=== PATIENT | female | born 1955 | race Caucasian/White ===

== ENCOUNTER 2018-07-03 09:32 | Inpatient (IN) ==
[2018-07-03] MEDS ORDERED: MEROPENEM 1,000 MG in SODIUM CHLORIDE 0.9% 100 ML IV STA (10:18)
[2018-07-03] MEDS ORDERED: ONDANSETRON 4 MG/2 ML VIAL IV STA (10:18)
[2018-07-03] MEDS ORDERED: methylPREDNISolone SOD SUC 125 MG/2 ML VIAL IV STA (10:18)
[2018-07-03] MEDS ORDERED: ALBUTEROL/IPRATROPIUM 3 ML NEB RESP TX STA (10:18)
[2018-07-03] MEDS ORDERED: SODIUM CHLORIDE 0.9% 1,000 ML IV STA ×2 (10:18→11:38)
[2018-07-03 10:57] LABS: Basophils # 0.1 10*3/uL (0.0-0.2); Basophils % 0.4 % (0.0-0.8); Eosinophils # 0.2 10*3/uL (0.0-0.87); Eosinophils % 1.2 % (0.00-10.9); Hematocrit 33.5 VOL% (35.7-47.0); Hemoglobin 10.2 GM/DL (12.0-16.0); Immature Granulocytes % 2.7 %; Immature Granulocytes Absolute 0.38 #; Lymphocytes # 2.2 10*3/uL (1.4-4.0); Lymphocytes % 15.2 % (21.3-54.2); Mean Corpuscular HGB Conc 30.4 GM/DL (32-36); Mean Corpuscular Hemoglobin 28 PG (27-34); Mean Corpuscular Volume 91.3 FL (87-102); Mean Platelet Volume 9.6 FL (9.6-12.0); Monocytes # 1.6 10*3/uL (0.11-0.8); Monocytes % 11.4 % (1.7-12.7); Neutrophils # 9.9 10*3/uL (1.4-7.4); Neutrophils % 69.1 % (38.7-73.9); Platelet Count 274 T/CUMM (130-400); Red Blood Count 3.67 MC/CUMM (3.8-5.5); Red Cell Distribution Width 21.4 % (9.3-17.3); White Blood Count 14.3 T/CUMM (4-12)
[2018-07-03 11:31] LABS: Lactic Acid 1.5 MMOL/L (0.4-2.0)
[2018-07-03 11:34] LABS: Alanine Aminotransferase 20 U/L (13-56); Albumin 2.6 G/DL (3.4-5.0); Alkaline Phosphatase 57 U/L (45-117); Amylase 50 U/L (25-115); Apearance,Urine Slightly Hazy (Clear); Aspartate Amino Transferase 10 U/L (0-37); Bilirubin,Urine Negative (Negative); Blood Urea Nitrogen 31 MG/DL (7-18); Blood, Urine Negative (Negative); Calcium 8.4 MG/DL (8.5-10.1); Glucose 88 MG/DL (74-106); Glucose,Urine (UA) Negative (Negative); Hyaline Casts,Urine 4 /LPF (0-3); Ketones,Urine 5 mg/dL (Negative); Mucus,Urine Occasional /LPF (Occasional); Nitrite,Urine Negative (Negative); Osmolality,Calculated 269.5 MOS/KG (273-304); Protein,Urine 30 MG/DL; RBC,Urine <1 /HPF (0-4); Sodium 132 MMOL/L (136-145); Total Protein 6.6 G/DL (6.4-8.3); Troponin I < 0.015 NG/ML (0.00-0.045); Urine Color Yellow (Yellow); Urine Urobilinogen < 2.0 EU/DL (0.2-1.0); WBC,Urine 1 /HPF (0-6)
[2018-07-03] MEDS ORDERED: ACETAMINOPHEN 325 MG TABLET PO PRN (13:29)
[2018-07-03] MEDS ORDERED: guaiFENesin/DM ER 600-30 MG TABLET PO PRN (13:29)
[2018-07-03] MEDS ORDERED: ONDANSETRON 4 MG/2 ML VIAL IV PRN (13:29)
[2018-07-03 14:34] LABS: Barbiturates Screen,Urine Negative (Negative); Benzodiazepines Screen,Urine Negative (Negative); Cannabinoid Screen,Urine Negative (Negative); Opiate Screen,Urine Positive (Negative); Phencyclidine Screen,Urine Negative (Negative)
[2018-07-03] MEDS ORDERED: ALBUTEROL 2.5 MG/3 ML NEB RESP TX PRN (15:26)
[2018-07-03] MEDS ORDERED: methylPREDNISolone SOD SUC 40 MG/1 ML VIAL IV SCH (15:30)
[2018-07-03] MEDS ORDERED: cefTRIAXone 1,000 MG in SYRINGE 1 EACH IV SCH (16:00)
[2018-07-03] MEDS ORDERED: AZITHROMYCIN INJ 500 MG in SODIUM CHLORIDE 0.9% 250 ML IV SCH (16:00)
[2018-07-03] MEDS: SODIUM CHLORIDE 0.9% 1,000 ML IV SCH (16:19)
[2018-07-03] MEDS ORDERED: DIVALPROEX 500 MG TABLET PO SCH (21:00)
[2018-07-03] MEDS: guaiFENesin/DM ER 600-30 MG TABLET PO SCH (21:46)
[2018-07-03] MEDS: ALBUTEROL/IPRATROPIUM 3 ML NEB RESP TX SCH (21:50)
[2018-07-03] MEDS: methylPREDNISolone SOD SUC 40 MG/1 ML VIAL IV SCH (21:52)
[2018-07-04] MEDS: ALBUTEROL/IPRATROPIUM 3 ML NEB RESP TX SCH ×2 (01:41→07:17)
[2018-07-04 04:30] LABS: Basophils % 0.3 % (0.0-0.8); Hematocrit 30.3 VOL% (35.7-47.0); Hemoglobin 9.2 GM/DL (12.0-16.0); Immature Granulocytes % 2.6 %; Immature Granulocytes Absolute 0.29 #; Lymphocytes # 1.4 10*3/uL (1.4-4.0); Lymphocytes % 12.9 % (21.3-54.2); Mean Corpuscular HGB Conc 30.4 GM/DL (32-36); Mean Corpuscular Hemoglobin 28 PG (27-34); Monocytes # 0.2 10*3/uL (0.11-0.8); Monocytes % 1.8 % (1.7-12.7); Neutrophils % 82.4 % (38.7-73.9); Platelet Count 264 T/CUMM (130-400); Red Blood Count 3.33 MC/CUMM (3.8-5.5); Red Cell Distribution Width 21.3 % (9.3-17.3)
[2018-07-04 05:28] LABS: Calcium 8.3 MG/DL (8.5-10.1); Osmolality,Calculated 282.8 MOS/KG (273-304); Potassium 5.4 MMOL/L (3.5-5.1)
[2018-07-04] MEDS: SODIUM CHLORIDE 0.9% 1,000 ML IV SCH (06:25)
[2018-07-04] MEDS ORDERED: LEVOTHYROXINE 150 MCG TABLET PO SCH (06:30)
[2018-07-04] MEDS: guaiFENesin/DM ER 600-30 MG TABLET PO SCH (08:58)
[2018-07-04] MEDS: methylPREDNISolone SOD SUC 40 MG/1 ML VIAL IV SCH (08:59)
[2018-07-04] MEDS ORDERED: DIVALPROEX 500 MG TABLET PO SCH (09:00)
[2018-07-04 12:02] VITALS: BP 106/60
== END 2018-07-04 14:13 | disposition home or self-care (01) | DRG 203 ==
LOC: N.ED 09:32 → N.EDINP 13:29 → N.TELEN 14:18
PROVIDERS: ADMIT Internal Medicine Infectious Disease; ATTEND Internal Medicine Infectious Disease

== ENCOUNTER 2018-12-26 09:19 | Inpatient (IN) ==
[2018-12-26] MEDS ORDERED: SODIUM CHLORIDE 0.9% 500 ML IV STA (09:42)
[2018-12-26] MEDS ORDERED: VANCOMYCIN INJ 1,000 MG in SODIUM CHLORIDE 0.9% 250 ML IV STA (09:42)
[2018-12-26] MEDS ORDERED: SODIUM CHLORIDE 0.9% 1,000 ML IV STA (09:52)
[2018-12-26] MEDS ORDERED: MEROPENEM 1,000 MG in SODIUM CHLORIDE 0.9% 100 ML IV STA ×2 (10:13→10:26)
[2018-12-26 10:31] LABS: Basophils # 0.1 10*3/uL (0.0-0.2); Basophils % 0.3 % (0.0-0.8); Eosinophils # 0.2 10*3/uL (0.0-0.87); Eosinophils % 1.1 % (0.00-10.9); Hematocrit 33.3 VOL% (35.7-47.0); Hemoglobin 10.2 GM/DL (12.0-16.0); Immature Granulocytes % 0.4 %; Immature Granulocytes Absolute 0.07 #; Lymphocytes # 1.6 10*3/uL (1.4-4.0); Lymphocytes % 9.8 % (21.3-54.2); Mean Corpuscular HGB Conc 30.6 GM/DL (32-36); Mean Corpuscular Volume 88.1 FL (87-102); Monocytes % 7.7 % (1.7-12.7); Neutrophils % 80.7 % (38.7-73.9); Platelet Count 301 T/CUMM (130-400); Red Blood Count 3.78 MC/CUMM (3.8-5.5); Red Cell Distribution Width 16.8 % (9.3-17.3); White Blood Count 16.7 T/CUMM (4-12)
[2018-12-26 10:38] LABS: PT Patient Result 10.8 SECS
[2018-12-26 10:54] LABS: Amorphous Crystals,Urine Few /HPF (Few); Apearance,Urine Slightly Hazy (Clear); Bilirubin,Urine Negative (Negative); Blood, Urine Negative (Negative); Glucose,Urine (UA) Negative (Negative); Ketones,Urine 20 mg/dL (Negative); Mucus,Urine Occasional /LPF (Occasional); Nitrite,Urine Negative (Negative); Protein,Urine 30 MG/DL; RBC,Urine <1 /HPF (0-4); Urine Color Amber (Yellow); Urine Urobilinogen < 2.0 EU/DL (0.2-1.0); WBC,Urine 1 /HPF (0-6)
[2018-12-26 11:34] LABS: Sedimentation Rate-Westergren 85 MM/HR (0-30)
[2018-12-26 11:43] LABS: Alanine Aminotransferase 22 U/L (13-56); Alkaline Phosphatase 130 U/L (45-117); Aspartate Amino Transferase 55 U/L (0-37); Blood Urea Nitrogen 21 MG/DL (7-18); Calcium 9.3 MG/DL (8.5-10.1); Glucose 126 MG/DL (74-106); Osmolality,Calculated 272.2 MOS/KG (273-304); Total Protein 7.1 G/DL (6.4-8.3); Troponin I < 0.015 NG/ML (0.00-0.045)
[2018-12-26] MEDS ORDERED: PROMETHAZINE 25 MG/1 ML VIAL IM PRN (13:59)
[2018-12-26] MEDS: SODIUM CHLORIDE 0.9% 1,000 ML IV SCH ×2 (14:00→21:25)
[2018-12-26] MEDS: ONDANSETRON 4 MG/2 ML VIAL IV PRN (21:26)
[2018-12-26] MEDS: MEROPENEM 1,000 MG in SODIUM CHLORIDE 0.9% 100 ML IV SCH (21:27)
[2018-12-26] MEDS: MORPHINE 4 MG/1 ML VIAL IV PRN (21:28)
[2018-12-27] MEDS: MORPHINE 4 MG/1 ML VIAL IV PRN ×3 (01:26→15:21)
[2018-12-27] MEDS: ONDANSETRON 4 MG/2 ML VIAL IV PRN ×2 (01:26→06:01)
[2018-12-27 06:02] LABS: Basophils % 0.2 % (0.0-0.8); Eosinophils # 0.6 10*3/uL (0.0-0.87); Eosinophils % 6.1 % (0.00-10.9); Hematocrit 26.2 VOL% (35.7-47.0); Hemoglobin 8.1 GM/DL (12.0-16.0); Immature Granulocytes % 0.3 %; Immature Granulocytes Absolute 0.03 #; Lymphocytes # 2.1 10*3/uL (1.4-4.0); Lymphocytes % 20.2 % (21.3-54.2); Mean Corpuscular HGB Conc 30.9 GM/DL (32-36); Mean Corpuscular Volume 87.9 FL (87-102); Mean Platelet Volume 10.1 FL (9.6-12.0); Monocytes % 8.8 % (1.7-12.7); Neutrophils % 64.4 % (38.7-73.9); Platelet Count 252 T/CUMM (130-400); Red Blood Count 2.98 MC/CUMM (3.8-5.5); Red Cell Distribution Width 16.6 % (9.3-17.3); White Blood Count 10.3 T/CUMM (4-12)
[2018-12-27] MEDS: SODIUM CHLORIDE 0.9% 1,000 ML IV SCH ×3 (06:03→22:35)
[2018-12-27 06:32] LABS: Albumin 2.3 G/DL (3.4-5.0); Bilirubin,Total 1.2 MG/DL (0.2-1.0); Osmolality,Calculated 275.5 MOS/KG (273-304); Thyroid Stimulating Hormone 0.708 uIU/ml (0.358-3.74); Total Protein 5.6 G/DL (6.4-8.3)
[2018-12-27] MEDS: LEVOTHYROXINE 150 MCG TABLET PO SCH (08:39)
[2018-12-27] MEDS: PANTOPRAZOLE 40 MG TABLET PO SCH (08:40)
[2018-12-27] MEDS: VANCOMYCIN INJ 1,250 MG in SODIUM CHLORIDE 0.9% 250 ML IV SCH (08:42)
[2018-12-27] MEDS ORDERED: MAGNESIUM SULF RIDER 4 GM in PREMIX 1 EACH IV ONE (09:00)
[2018-12-27] MEDS ORDERED: SODIUM CHLORIDE 0.9% 1,000 ML IV PRN (10:29)
[2018-12-27] MEDS ORDERED: DEXAMETHASONE 10 MG/1 ML VIAL IV ONE (10:30)
[2018-12-27] MEDS: MEROPENEM 1,000 MG in SODIUM CHLORIDE 0.9% 100 ML IV SCH ×2 (13:42→21:04)
[2018-12-28 05:42] LABS: Basophils % 0.2 % (0.0-0.8); Hematocrit 37.4 VOL% (35.7-47.0); Hemoglobin 11.8 GM/DL (12.0-16.0); Immature Granulocytes % 0.5 %; Immature Granulocytes Absolute 0.03 #; Lymphocytes # 1.2 10*3/uL (1.4-4.0); Lymphocytes % 21.7 % (21.3-54.2); Mean Corpuscular HGB Conc 31.6 GM/DL (32-36); Mean Corpuscular Volume 86.4 FL (87-102); Mean Platelet Volume 10.3 FL (9.6-12.0); Monocytes % 1.6 % (1.7-12.7); Platelet Count 257 T/CUMM (130-400); Red Blood Count 4.33 MC/CUMM (3.8-5.5); Red Cell Distribution Width 16.2 % (9.3-17.3); White Blood Count 5.5 T/CUMM (4-12)
[2018-12-28 06:18] LABS: Albumin 2.4 G/DL (3.4-5.0); Bilirubin,Total 0.7 MG/DL (0.2-1.0); Osmolality,Calculated 278.7 MOS/KG (273-304); Total Protein 6.5 G/DL (6.4-8.3)
[2018-12-28] MEDS: LEVOTHYROXINE 150 MCG TABLET PO SCH (06:45)
[2018-12-28] MEDS: PANTOPRAZOLE 40 MG TABLET PO SCH (09:33)
[2018-12-28] MEDS: HYDROCORTISONE 10 MG TABLET PO SCH (09:33)
[2018-12-28] MEDS: SODIUM CHLORIDE 0.9% 1,000 ML IV SCH ×2 (09:35→15:36)
[2018-12-28] MEDS: MEROPENEM 1,000 MG in SODIUM CHLORIDE 0.9% 100 ML IV SCH (09:36)
[2018-12-28] MEDS: MORPHINE 4 MG/1 ML VIAL IV PRN ×2 (09:36→17:37)
[2018-12-28] MEDS: VANCOMYCIN INJ 1,250 MG in SODIUM CHLORIDE 0.9% 250 ML IV SCH (10:30)
[2018-12-28] MEDS: ACETAMINOPHEN 325 MG TABLET PO PRN (15:34)
[2018-12-28] MEDS: CIPROFLOXACIN 500 MG TABLET PO SCH (21:45)
[2018-12-29] MEDS: SODIUM CHLORIDE 0.9% 1,000 ML IV SCH ×2 (02:18→09:03)
[2018-12-29 05:35] LABS: Basophils % 0.1 % (0.0-0.8); Hematocrit 32.7 VOL% (35.7-47.0); Hemoglobin 10.5 GM/DL (12.0-16.0); Immature Granulocytes % 0.5 %; Immature Granulocytes Absolute 0.04 #; Lymphocytes # 1.3 10*3/uL (1.4-4.0); Mean Corpuscular HGB Conc 32.1 GM/DL (32-36); Mean Corpuscular Volume 85.4 FL (87-102); Mean Platelet Volume 10.2 FL (9.6-12.0); Neutrophils % 77.4 % (38.7-73.9); Platelet Count 263 T/CUMM (130-400); Red Blood Count 3.83 MC/CUMM (3.8-5.5); Red Cell Distribution Width 16.2 % (9.3-17.3); White Blood Count 7.9 T/CUMM (4-12)
[2018-12-29 05:59] LABS: Albumin 2.6 G/DL (3.4-5.0); Bilirubin,Total 1.5 MG/DL (0.2-1.0); Calcium 8.9 MG/DL (8.5-10.1); Osmolality,Calculated 287.1 MOS/KG (273-304)
[2018-12-29] MEDS: LEVOTHYROXINE 150 MCG TABLET PO SCH (06:04)
[2018-12-29] MEDS: ACETAMINOPHEN 325 MG TABLET PO PRN ×2 (06:09→12:10)
[2018-12-29] MEDS ORDERED: TOPIRAMATE 25 MG TABLET PO ONE (08:02)
[2018-12-29] MEDS: HYDROCORTISONE 10 MG TABLET PO SCH (09:02)
[2018-12-29] MEDS: CIPROFLOXACIN 500 MG TABLET PO SCH (09:02)
[2018-12-29] MEDS: PANTOPRAZOLE 40 MG TABLET PO SCH (09:02)
[2018-12-29] MEDS ORDERED: HYDROCORTISONE 10 MG TABLET PO SCH (14:00)
[2018-12-29 16:27] VITALS: BP 136/78
== END 2018-12-29 18:01 | disposition home or self-care (01) | DRG 596 ==
LOC: N.ED 09:19 → N.EDINP 14:00 → N.5E 15:38
PROVIDERS: ADMIT Internal Medicine; ATTEND Internal Medicine

== ENCOUNTER 2019-04-16 10:44 | Inpatient (IN) ==
[2019-04-16] MEDS ORDERED: METOCLOPRAMIDE 10 MG/2 ML VIAL IV STA (11:09)
[2019-04-16] MEDS ORDERED: ONDANSETRON 4 MG/2 ML VIAL IV STA (11:09)
[2019-04-16] MEDS ORDERED: SODIUM CHLORIDE 0.9% 2,000 ML IV STA (11:09)
[2019-04-16] MEDS ORDERED: PANTOPRAZOLE 40 MG VIAL IV STA (11:09)
[2019-04-16 11:47] LABS: Basophils % 0.3 % (0.0-0.8); Eosinophils # 0.3 10*3/uL (0.0-0.87); Eosinophils % 2.4 % (0.00-10.9); Hematocrit 28.6 VOL% (35.7-47.0); Hemoglobin 9.3 GM/DL (12.0-16.0); Immature Granulocytes % 0.6 %; Immature Granulocytes Absolute 0.08 #; Lymphocytes % 16.3 % (21.3-54.2); Mean Corpuscular HGB Conc 32.5 GM/DL (32-36); Mean Corpuscular Volume 91.7 FL (87-102); Mean Platelet Volume 9.3 FL (9.6-12.0); Monocytes % 8.3 % (1.7-12.7); Neutrophils % 72.1 % (38.7-73.9); Platelet Count 337 T/CUMM (130-400); Red Blood Count 3.12 MC/CUMM (3.8-5.5); Red Cell Distribution Width 13.6 % (9.3-17.3); White Blood Count 12.5 T/CUMM (4-12)
[2019-04-16] MEDS ORDERED: VANCOMYCIN INJ 1,000 MG in SODIUM CHLORIDE 0.9% 250 ML IV STA (11:50)
[2019-04-16 12:11] LABS: Alanine Aminotransferase 10 U/L (13-56); Albumin 2.5 G/DL (3.4-5.0); Alkaline Phosphatase 66 U/L (45-117); Amylase 26 U/L (25-115); Aspartate Amino Transferase 20 U/L (0-37); Blood Urea Nitrogen 13 MG/DL (7-18); Calcium 8.6 MG/DL (8.5-10.1); Estimated Glom Filtration Rate 28 ML/MIN; Glucose 84 MG/DL (74-106); Osmolality,Calculated 268.1 MOS/KG (273-304); Total Protein 5.7 G/DL (6.4-8.3); Troponin I < 0.015 NG/ML (0.00-0.045)
[2019-04-16 12:27] LABS: Apearance,Urine CLEAR (Clear); Bilirubin,Urine Negative (Negative); Blood, Urine Negative (Negative); Glucose,Urine (UA) Negative (Negative); Ketones,Urine Negative (Negative); Nitrite,Urine Negative (Negative); Protein,Urine Negative; RBC,Urine 1 /HPF (0-4); Urine Color Yellow (Yellow); Urine Specific Gravity 1.012 (1.001-1.035); Urine Urobilinogen < 2.0 EU/DL (0.2-1.0); WBC,Urine <1 /HPF (0-6)
[2019-04-16 12:49] LABS: Barbiturates Screen,Urine Negative (Negative); Benzodiazepines Screen,Urine Negative (Negative); Cannabinoid Screen,Urine Negative (Negative); Opiate Screen,Urine Positive (Negative); Phencyclidine Screen,Urine Negative (Negative)
[2019-04-16] MEDS ORDERED: SODIUM CHLORIDE 0.9% 1,000 ML IV STA (13:57)
[2019-04-16] MEDS ORDERED: PROMETHAZINE 25 MG/1 ML VIAL IM PRN (14:34)
[2019-04-16] MEDS ORDERED: ONDANSETRON 4 MG/2 ML VIAL IV PRN (14:34)
[2019-04-16] MEDS ORDERED: MORPHINE 4 MG/1 ML VIAL IV PRN (14:34)
[2019-04-16] MEDS ORDERED: ACETAMINOPHEN 325 MG TABLET PO PRN (14:34)
[2019-04-16 15:26] LABS: Free T4 (Free Thyroxine) 1.59 NG/DL (0.76-1.46); Thyroid Stimulating Hormone 1.8 uIU/ml (0.358-3.74)
[2019-04-16] MEDS: HYDROCORTISONE 100 MG VIAL IV SCH ×2 (17:38→22:51)
[2019-04-16] MEDS: SODIUM CHLORIDE 0.9% 1,000 ML IV SCH ×2 (17:38→23:00)
[2019-04-16] MEDS: PANTOPRAZOLE 40 MG VIAL IV SCH ×3 (17:40→21:16)
[2019-04-16] MEDS: ENOXAPARIN 30 MG/0.3 ML SYRINGE SUBCUT SCH (17:41)
[2019-04-16] MEDS: PIPERACILLIN/TAZOBACTAM 3,375 MG in SODIUM CHLORIDE 0.9% 100 ML IV SCH (17:43)
[2019-04-16] MEDS: fentaNYL 100 MCG/HR PATCH TRANSDERM SCH (20:10)
[2019-04-17 03:00] LABS: Basophils % 0.3 % (0.0-0.8); Hematocrit 28.7 VOL% (35.7-47.0); Hemoglobin 8.6 GM/DL (12.0-16.0); Immature Granulocytes % 0.3 %; Immature Granulocytes Absolute 0.02 #; Lymphocytes # 1.2 10*3/uL (1.4-4.0); Lymphocytes % 15.1 % (21.3-54.2); Mean Platelet Volume 9.5 FL (9.6-12.0); Monocytes % 1.7 % (1.7-12.7); Neutrophils % 82.6 % (38.7-73.9); Platelet Count 299 T/CUMM (130-400); Red Blood Count 3.02 MC/CUMM (3.8-5.5); Red Cell Distribution Width 13.8 % (9.3-17.3); White Blood Count 7.6 T/CUMM (4-12)
[2019-04-17] MEDS: PIPERACILLIN/TAZOBACTAM 3,375 MG in SODIUM CHLORIDE 0.9% 100 ML IV SCH ×2 (03:32→17:39)
[2019-04-17 03:34] LABS: Albumin 2.2 G/DL (3.4-5.0); Bilirubin,Total 0.7 MG/DL (0.2-1.0); Osmolality,Calculated 278.4 MOS/KG (273-304)
[2019-04-17] MEDS: HYDROCORTISONE 100 MG VIAL IV SCH (06:21)
[2019-04-17] MEDS: LEVOTHYROXINE 150 MCG TABLET PO SCH (06:22)
[2019-04-17] MEDS ORDERED: HYDROCORTISONE 100 MG VIAL IV SCH (08:00)
[2019-04-17] MEDS: PANTOPRAZOLE 40 MG VIAL IV SCH ×2 (08:05→21:43)
[2019-04-17] MEDS: SODIUM CHLORIDE 0.9% 1,000 ML IV SCH ×2 (08:07→17:04)
[2019-04-17] MEDS: HYDROCORTISONE 10 MG TABLET PO SCH ×2 (09:40→13:04)
[2019-04-17] MEDS: GABAPENTIN 600 MG TABLET PO SCH ×3 (09:40→21:43)
[2019-04-17] MEDS: POLYETHYLENE GLYCOL POWDER 17 GM PACK PO SCH (11:54)
[2019-04-17] MEDS: VANCOMYCIN INJ 1,250 MG in SODIUM CHLORIDE 0.9% 250 ML IV SCH (12:36)
[2019-04-17] MEDS ORDERED: fentaNYL 100 MCG/HR PATCH TRANSDERM SCH (16:45)
[2019-04-17] MEDS: ENOXAPARIN 30 MG/0.3 ML SYRINGE SUBCUT SCH (17:05)
[2019-04-17] MEDS: fentaNYL 100 MCG/HR PATCH TRANSDERM SCH (17:06)
[2019-04-17] MEDS: LUBIPROSTONE 24 MCG CAPSULE PO SCH (21:42)
[2019-04-17] MEDS: MORPHINE 4 MG/1 ML VIAL IV PRN (21:45)
[2019-04-18] MEDS: PIPERACILLIN/TAZOBACTAM 3,375 MG in SODIUM CHLORIDE 0.9% 100 ML IV SCH ×2 (04:39→16:49)
[2019-04-18 05:31] LABS: Basophils % 0.4 % (0.0-0.8); Eosinophils # 0.1 10*3/uL (0.0-0.87); Eosinophils % 0.8 % (0.00-10.9); Hematocrit 26.8 VOL% (35.7-47.0); Hemoglobin 8.3 GM/DL (12.0-16.0); Immature Granulocytes % 0.7 %; Immature Granulocytes Absolute 0.07 #; Lymphocytes # 1.9 10*3/uL (1.4-4.0); Mean Platelet Volume 9.3 FL (9.6-12.0); Monocytes % 8.5 % (1.7-12.7); Neutrophils % 70.6 % (38.7-73.9); Platelet Count 316 T/CUMM (130-400); Red Blood Count 2.85 MC/CUMM (3.8-5.5); Red Cell Distribution Width 13.7 % (9.3-17.3); White Blood Count 9.9 T/CUMM (4-12)
[2019-04-18 06:04] LABS: Calcium 8.1 MG/DL (8.5-10.1)
[2019-04-18] MEDS: SODIUM CHLORIDE 0.9% 1,000 ML IV SCH ×2 (06:19→15:14)
[2019-04-18] MEDS: LEVOTHYROXINE 150 MCG TABLET PO SCH (06:19)
[2019-04-18] MEDS: MORPHINE 4 MG/1 ML VIAL IV PRN ×2 (08:31→22:42)
[2019-04-18] MEDS: HYDROCORTISONE 10 MG TABLET PO SCH ×2 (08:33→15:13)
[2019-04-18] MEDS: LUBIPROSTONE 24 MCG CAPSULE PO SCH ×2 (08:33→20:25)
[2019-04-18] MEDS: PANTOPRAZOLE 40 MG VIAL IV SCH ×2 (08:33→20:26)
[2019-04-18] MEDS: POLYETHYLENE GLYCOL POWDER 17 GM PACK PO SCH (08:33)
[2019-04-18] MEDS: GABAPENTIN 600 MG TABLET PO SCH ×3 (08:34→20:24)
[2019-04-18] MEDS: SENNA 8.6 MG TABLET PO SCH (08:34)
[2019-04-18] MEDS ORDERED: MORPHINE 10 MG/1 ML VIAL IV PRN (11:09)
[2019-04-18] MEDS ORDERED: PROMETHAZINE INJ 25 MG in SODIUM CHLORIDE 0.9% 50 ML IV PRN (12:02)
[2019-04-18] MEDS: METRONIDAZOLE TOP SCH (15:12)
[2019-04-18] MEDS: VANCOMYCIN INJ 1,250 MG in SODIUM CHLORIDE 0.9% 250 ML IV SCH (15:12)
[2019-04-18] MEDS: ENOXAPARIN 30 MG/0.3 ML SYRINGE SUBCUT SCH (16:51)
[2019-04-19] MEDS: SODIUM CHLORIDE 0.9% 1,000 ML IV SCH ×2 (02:31→02:33)
[2019-04-19] MEDS: PIPERACILLIN/TAZOBACTAM 3,375 MG in SODIUM CHLORIDE 0.9% 100 ML IV SCH (05:10)
[2019-04-19] MEDS: LEVOTHYROXINE 150 MCG TABLET PO SCH (06:14)
[2019-04-19] MEDS: GABAPENTIN 600 MG TABLET PO SCH (08:26)
[2019-04-19] MEDS: PANTOPRAZOLE 40 MG VIAL IV SCH (08:26)
[2019-04-19] MEDS: LUBIPROSTONE 24 MCG CAPSULE PO SCH (08:27)
[2019-04-19] MEDS: HYDROCORTISONE 10 MG TABLET PO SCH (08:27)
[2019-04-19] MEDS: MORPHINE 4 MG/1 ML VIAL IV PRN (08:33)
[2019-04-19] MEDS ORDERED: CIPROFLOXACIN 500 MG TABLET PO SCH (09:00)
[2019-04-19] MEDS: METRONIDAZOLE TOP SCH (09:16)
[2019-04-19] MEDS: POLYETHYLENE GLYCOL POWDER 17 GM PACK PO SCH (09:16)
[2019-04-19] MEDS: SENNA 8.6 MG TABLET PO SCH (09:16)
[2019-04-19 11:35] VITALS: BP 135/77
== END 2019-04-19 15:35 | disposition home health service (06) | DRG 392 ==
LOC: N.ED 10:44 → N.EDINP 14:34 → N.TELEN 16:46 → N.4E 04-17 14:13
PROVIDERS: ADMIT Internal Medicine; ATTEND Internal Medicine

== ENCOUNTER 2019-09-11 19:22 | Inpatient (IN) ==
[2019-09-11] MEDS ORDERED: SODIUM CHLORIDE 0.9% 2,700 ML IV ONE (19:38)
[2019-09-11] MEDS ORDERED: CEFEPIME 2,000 MG in SODIUM CHLORIDE 0.9% 100 ML IV STA (19:40)
[2019-09-11] MEDS ORDERED: methylPREDNISolone SOD SUC 125 MG/2 ML VIAL IV STA (19:51)
[2019-09-11] MEDS ORDERED: LACTATED RINGERS IV ONE (20:00)
[2019-09-11 20:02] LABS: Basophils % 0.6 % (0.0-0.8); Eosinophils % 1.7 % (0.00-10.9); Hematocrit 21.5 VOL% (35.7-47.0); Hemoglobin 6.8 GM/DL (12.0-16.0); Immature Granulocytes % 1.7 %; Immature Granulocytes Absolute 0.03 #; Lymphocytes # 0.5 10*3/uL (1.4-4.0); Lymphocytes % 26.3 % (21.3-54.2); Mean Corpuscular HGB Conc 31.6 GM/DL (32-36); Mean Corpuscular Volume 98.2 FL (87-102); Mean Platelet Volume 11.4 FL (9.6-12.0); Monocytes % 26.8 % (1.7-12.7); Neutrophils % 42.9 % (38.7-73.9); Red Blood Count 2.19 MC/CUMM (3.8-5.5); Red Cell Distribution Width 15.3 % (9.3-17.3); White Blood Count 1.8 T/CUMM (4-12)
[2019-09-11 20:08] LABS: ABG Base Excess 3.4 MMOL/L (-2.5-2.5); ABG HCO3 27.5 MMOL/L (20-26); ABG Oxygen Saturation 99.3 % (95-100); ABG PCO2 42.6 MM HG (35-48); ABG PH 7.428 (7.35-7.45); ABG TCO2 25.9 MMOL/L (23-27); Allen Test Positive; Pt O2 Delivery Device Other
[2019-09-11 20:12] LABS: Platelet Count 9 T/CUMM (130-400)
[2019-09-11 20:17] LABS: Albumin 2.4 G/DL (3.4-5.0); Bilirubin,Total 0.7 MG/DL (0.2-1.0); Calcium 8.3 MG/DL (8.5-10.1); Osmolality,Calculated 263.8 MOS/KG (273-304); Total Protein 5.7 G/DL (6.4-8.3)
[2019-09-11 20:22] LABS: INR 1.1; PT Patient Result 11.4 SECS (9.6-12.2); Partial Thromboplastin Time 36.4 SECS (20.8-36.0)
[2019-09-11] MEDS ORDERED: VANCOMYCIN INJ 2,000 MG in SODIUM CHLORIDE 0.9% 500 ML IV ONE (20:30)
[2019-09-11] MEDS ORDERED: SODIUM CHLORIDE 0.9% 1,000 ML IV PRN (20:36)
[2019-09-11] MEDS ORDERED: IBUPROFEN 200 MG TABLET PO STA (20:41)
[2019-09-11] MEDS ORDERED: IBUPROFEN 600 MG TABLET ONE (20:43)
[2019-09-11 20:48] LABS: Anisocytosis 2+; Hypochromasia 2+; Lymphocytes 38 % (20-55); Microcytosis 2+; Platelet Estimate Decreased; Segmented Neutrophils 38 % (50-85); Total Cells Counted 100
[2019-09-11 20:56] LABS: Apearance,Urine Slightly Hazy (Clear); Bacteria,Urine Occasional /HPF (Few); Bilirubin,Urine Negative (Negative); Blood, Urine Negative (Negative); Glucose,Urine (UA) Negative (Negative); Ketones,Urine Negative (Negative); Mucus,Urine Occasional /LPF (Occasional); Nitrite,Urine Negative (Negative); Protein,Urine 30 MG/DL; Urine Color Amber (Yellow); Urine Specific Gravity 1.016 (1.001-1.035); WBC,Urine 17 /HPF (0-6)
[2019-09-11] MEDS ORDERED: hydrALAZINE 20 MG/1 ML VIAL IV PRN (21:29)
[2019-09-11] MEDS ORDERED: ACETAMINOPHEN 325 MG TABLET PO PRN (21:29)
[2019-09-11] MEDS ORDERED: ALBUTEROL 2.5 MG/3 ML NEB RESP TX PRN (21:29)
[2019-09-11] MEDS ORDERED: guaiFENesin/DM ER 600-30 MG TABLET PO PRN (21:29)
[2019-09-11] MEDS ORDERED: DOCUSATE SODIUM 100 MG CAPSULE PO PRN (21:29)
[2019-09-11] MEDS ORDERED: ZALEPLON 5 MG CAPSULE PO PRN (21:29)
[2019-09-11] MEDS ORDERED: ONDANSETRON 4 MG/2 ML VIAL IV PRN (21:29)
[2019-09-11] MEDS ORDERED: VANCOMYCIN INJ 1,000 MG in SODIUM CHLORIDE 0.9% 250 ML IV PRN (21:48)
[2019-09-11] MEDS: metroNIDAZOLE INJ 500 MG in PREMIX 1 EACH IV SCH (23:28)
[2019-09-11] MEDS ORDERED: SODIUM CHLORIDE 0.9% 1,000 ML IV SCH (23:30)
[2019-09-12] MEDS: SODIUM CHLORIDE 0.9% 1,000 ML IV SCH ×3 (00:20→23:18)
[2019-09-12] MEDS: metroNIDAZOLE INJ 500 MG in PREMIX 1 EACH IV SCH ×3 (06:30→21:57)
[2019-09-12 06:54] LABS: Basophils % 0.7 % (0.0-0.8); Hematocrit 26.6 VOL% (35.7-47.0); Immature Granulocytes % 1.4 %; Immature Granulocytes Absolute 0.02 #; Lymphocytes # 0.2 10*3/uL (1.4-4.0); Lymphocytes % 12.4 % (21.3-54.2); Mean Corpuscular Volume 93.7 FL (87-102); Monocytes % 19.3 % (1.7-12.7); Neutrophils % 66.2 % (38.7-73.9); Red Cell Distribution Width 15.7 % (9.3-17.3); White Blood Count 1.5 T/CUMM (4-12)
[2019-09-12 06:59] LABS: Platelet Count 6 T/CUMM (130-400); Red Blood Count 2.84 MC/CUMM (3.8-5.5)
[2019-09-12 07:00] LABS: Hemoglobin 8.5 GM/DL (12.0-16.0)
[2019-09-12 07:11] LABS: Albumin 2.5 G/DL (3.4-5.0); Bilirubin,Total 0.7 MG/DL (0.2-1.0); Calcium 8.5 MG/DL (8.5-10.1); Total Protein 5.7 G/DL (6.4-8.3)
[2019-09-12 08:44] LABS: Band Neutrophils 13 % (0-10); Eosinophils 1 % (0-10); Lymphocytes 15 % (20-55); Metamyelocytes 3 %; Segmented Neutrophils 52 % (50-85); Total Cells Counted 100
[2019-09-12 08:45] LABS: Anisocytosis Slight; Atypical Lymphocytes Few; Macrocytosis Slight; Platelet Estimate Decreased; Reactive Lymphocytes Few
[2019-09-12] MEDS: CEFEPIME 2,000 MG in SODIUM CHLORIDE 0.9% 100 ML IV SCH ×2 (09:31→22:48)
[2019-09-12] MEDS ORDERED: HYDROCORTISONE 100 MG VIAL IV ONE (11:02)
[2019-09-12] MEDS ORDERED: POLYETHYLENE GLYCOL POWDER 17 GM PACK PO PRN (11:02)
[2019-09-12] MEDS ORDERED: ONDANSETRON 4 MG TABLET PO PRN (11:02)
[2019-09-12] MEDS: CHOLECALCIFEROL 1,000 UNIT TABLET PO SCH (11:56)
[2019-09-12] MEDS: LEVOTHYROXINE 175 MCG TABLET PO SCH (11:56)
[2019-09-12] MEDS: HYDROCORTISONE 10 MG TABLET PO SCH ×2 (11:56→15:19)
[2019-09-12] MEDS: ACYCLOVIR 800 MG TABLET PO SCH ×2 (11:56→21:57)
[2019-09-12] MEDS: PANTOPRAZOLE 40 MG TABLET PO SCH (11:56)
[2019-09-12] MEDS: SENNA 8.6 MG TABLET PO SCH ×2 (11:56→21:57)
[2019-09-12] MEDS ORDERED: SODIUM CHLORIDE 0.9% 1,000 ML IV PRN ×2 (13:19→13:40)
[2019-09-12] MEDS ORDERED: OXYCODONE PO SCH ×2 (14:00→22:00)
[2019-09-12] MEDS: OXYCODONE 80 MG PO SCH ×2 (14:40→22:09)
[2019-09-12] MEDS: GABAPENTIN 300 MG CAPSULE PO SCH ×2 (15:19→21:56)
[2019-09-12] MEDS: FILGRASTIM-SNDZ 300 MCG/0.5 ML SYRINGE SUBCUT SCH (15:21)
[2019-09-12] MEDS: OXYCODONE PO SCH (22:10)
[2019-09-13] MEDS: GABAPENTIN 300 MG CAPSULE PO SCH ×3 (06:08→22:26)
[2019-09-13] MEDS: metroNIDAZOLE INJ 500 MG in PREMIX 1 EACH IV SCH (06:08)
[2019-09-13] MEDS: OXYCODONE 80 MG PO SCH ×3 (06:09→22:10)
[2019-09-13] MEDS: OXYCODONE PO SCH ×3 (06:11→22:11)
[2019-09-13 06:23] LABS: Hematocrit 27.5 VOL% (35.7-47.0); Hemoglobin 9.1 GM/DL (12.0-16.0); Immature Granulocytes % 5.8 %; Immature Granulocytes Absolute 0.51 #; Lymphocytes # 0.7 10*3/uL (1.4-4.0); Lymphocytes % 8.2 % (21.3-54.2); Mean Corpuscular HGB Conc 33.1 GM/DL (32-36); Mean Platelet Volume 10.9 FL (9.6-12.0); Monocytes % 11.6 % (1.7-12.7); Neutrophils % 74.4 % (38.7-73.9); Red Blood Count 2.99 MC/CUMM (3.8-5.5); Red Cell Distribution Width 15.9 % (9.3-17.3); White Blood Count 8.9 T/CUMM (4-12)
[2019-09-13 06:26] LABS: Platelet Count 26 T/CUMM (130-400)
[2019-09-13 06:43] LABS: Band Neutrophils 4 % (0-10); Hypochromasia 1+; Lymphocytes 6 % (20-55); Ovalocytes Slight; Platelet Estimate Decreased; Segmented Neutrophils 81 % (50-85); Total Cells Counted 100
[2019-09-13 06:51] LABS: Albumin 2.6 G/DL (3.4-5.0); Calcium 8.8 MG/DL (8.5-10.1); Osmolality,Calculated 273.1 MOS/KG (273-304); Total Protein 6.1 G/DL (6.4-8.3)
[2019-09-13] MEDS: HYDROCORTISONE 10 MG TABLET PO SCH ×2 (08:39→14:27)
[2019-09-13] MEDS: OXYCODONE 30 MG PO PRN ×3 (08:40→20:13)
[2019-09-13] MEDS: SODIUM CHLORIDE 0.9% 1,000 ML IV SCH ×2 (09:27→14:28)
[2019-09-13] MEDS: SENNA 8.6 MG TABLET PO SCH ×2 (09:32→20:12)
[2019-09-13] MEDS: PANTOPRAZOLE 40 MG TABLET PO SCH (09:32)
[2019-09-13] MEDS: ACYCLOVIR 800 MG TABLET PO SCH ×2 (09:32→20:12)
[2019-09-13] MEDS: LEVOTHYROXINE 175 MCG TABLET PO SCH (09:32)
[2019-09-13] MEDS: CHOLECALCIFEROL 1,000 UNIT TABLET PO SCH (09:32)
[2019-09-13] MEDS: CEFEPIME 2,000 MG in SODIUM CHLORIDE 0.9% 100 ML IV SCH ×2 (09:44→20:13)
[2019-09-13] MEDS: FILGRASTIM-SNDZ 300 MCG/0.5 ML SYRINGE SUBCUT SCH (09:45)
[2019-09-13] MEDS: VANCOMYCIN INJ 1,000 MG in SODIUM CHLORIDE 0.9% 250 ML IV SCH (10:25)
[2019-09-14] MEDS: SODIUM CHLORIDE 0.9% 1,000 ML IV SCH ×2 (00:10→10:29)
[2019-09-14 05:30] LABS: Basophils # 0.1 10*3/uL (0.0-0.2); Basophils % 0.6 % (0.0-0.8); Eosinophils % 0.3 % (0.00-10.9); Hemoglobin 8.3 GM/DL (12.0-16.0); Immature Granulocytes % 10.8 %; Immature Granulocytes Absolute 1.68 #; Lymphocytes # 1.2 10*3/uL (1.4-4.0); Lymphocytes % 7.9 % (21.3-54.2); Mean Corpuscular HGB Conc 31.9 GM/DL (32-36); Mean Corpuscular Volume 94.9 FL (87-102); Mean Platelet Volume 12.3 FL (9.6-12.0); Monocytes % 6.4 % (1.7-12.7); NRBC # 0.03 10*3/uL; Red Blood Count 2.74 MC/CUMM (3.8-5.5); Red Cell Distribution Width 16.1 % (9.3-17.3); White Blood Count 15.5 T/CUMM (4-12)
[2019-09-14 05:34] LABS: Platelet Count 18 T/CUMM (130-400)
[2019-09-14 06:03] LABS: Band Neutrophils 2 % (0-10); Hypochromasia 2+; Lymphocytes 9 % (20-55); Myelocytes 1 %; Nucleated Red Blood Cells 1 (0-5); Ovalocytes Slight; Platelet Estimate Decreased; Segmented Neutrophils 85 % (50-85); Total Cells Counted 100
[2019-09-14] MEDS: GABAPENTIN 300 MG CAPSULE PO SCH ×2 (06:06→14:43)
[2019-09-14] MEDS: LEVOTHYROXINE 175 MCG TABLET PO SCH (06:06)
[2019-09-14] MEDS: OXYCODONE PO SCH ×2 (06:09→14:43)
[2019-09-14] MEDS: OXYCODONE 80 MG PO SCH ×2 (06:19→14:43)
[2019-09-14] MEDS: OXYCODONE 30 MG PO PRN ×2 (06:23→10:35)
[2019-09-14 06:32] LABS: Albumin 2.2 G/DL (3.4-5.0); Bilirubin,Total 0.5 MG/DL (0.2-1.0); Calcium 8.3 MG/DL (8.5-10.1); Osmolality,Calculated 282.1 MOS/KG (273-304); Total Protein 5.2 G/DL (6.4-8.3)
[2019-09-14] MEDS ORDERED: MAGNESIUM SULF RIDER 4 GM in PREMIX 1 EACH IV PRN (07:05)
[2019-09-14] MEDS ORDERED: MAGNESIUM SULF RIDER 2 GM in PREMIX 1 EACH IV PRN (07:05)
[2019-09-14] MEDS ORDERED: SODIUM CHLORIDE 0.9% 1,000 ML IV PRN (08:12)
[2019-09-14] MEDS: HYDROCORTISONE 10 MG TABLET PO SCH ×2 (08:58→14:43)
[2019-09-14] MEDS: PANTOPRAZOLE 40 MG TABLET PO SCH (08:58)
[2019-09-14] MEDS: ACYCLOVIR 800 MG TABLET PO SCH (08:58)
[2019-09-14] MEDS: SENNA 8.6 MG TABLET PO SCH (08:58)
[2019-09-14] MEDS: FILGRASTIM-SNDZ 300 MCG/0.5 ML SYRINGE SUBCUT SCH (08:58)
[2019-09-14] MEDS: CHOLECALCIFEROL 1,000 UNIT TABLET PO SCH (08:58)
[2019-09-14] MEDS: CEFEPIME 2,000 MG in SODIUM CHLORIDE 0.9% 100 ML IV SCH (08:58)
[2019-09-14] MEDS: VANCOMYCIN INJ 1,000 MG in SODIUM CHLORIDE 0.9% 250 ML IV SCH (10:10)
[2019-09-14] MEDS: POTASSIUM CHLORIDE 20 MEQ TABLET PO PRN ×2 (10:29→12:02)
[2019-09-14] MEDS ORDERED: METHADONE 10 MG TABLET PO SCH (11:00)
[2019-09-14] MEDS ORDERED: HEPARIN LOCK FLUSH 500 UNIT/5 ML SYRINGE IV ONE (14:24)
[2019-09-14 14:39] VITALS: BP 109/54
== END 2019-09-14 15:03 | disposition home or self-care (01) | DRG 871 ==
LOC: EDUNIT# → EDBD → N.ED 19:22 → SUATTDRO 21:29 → N.EDINP 21:29 → N.CC 21:53 → N.4E 09-12 13:34
PROVIDERS: ADMIT Internal Medicine; ATTEND Internal Medicine

== ENCOUNTER 2020-01-23 09:25 | Inpatient (IN) ==
[2020-01-23] MEDS ORDERED: SODIUM CHLORIDE 0.9% 1,000 ML IV STA (09:52)
[2020-01-23] MEDS ORDERED: MORPHINE 4 MG/1 ML VIAL IV STA (09:53)
[2020-01-23] MEDS ORDERED: HYDROmorphone 2 MG/1 ML VIAL IV STA (10:16)
[2020-01-23] MEDS ORDERED: HYDROmorphone 2 MG/1 ML VIAL ONE (10:17)
[2020-01-23 10:32] LABS: Basophils % 0.4 % (0.0-0.8); Eosinophils # 0.2 10*3/uL (0.0-0.87); Immature Granulocytes % 0.4 %; Immature Granulocytes Absolute 0.03 #; Lymphocytes # 1.2 10*3/uL (1.4-4.0); Lymphocytes % 15.1 % (21.3-54.2); Mean Corpuscular HGB Conc 31.6 GM/DL (32-36); Mean Corpuscular Volume 103.3 FL (87-102); Mean Platelet Volume 9.3 FL (9.6-12.0); Monocytes % 10.4 % (1.7-12.7); Neutrophils % 70.7 % (38.7-73.9); Platelet Count 268 T/CUMM (130-400); Red Blood Count 1.84 MC/CUMM (3.8-5.5); Red Cell Distribution Width 19.6 % (9.3-17.3)
[2020-01-23 10:47] LABS: Apearance,Urine CLOUDY (Clear); Bilirubin,Urine Negative (Negative); Blood, Urine Moderate mg/dL (Negative); Glucose,Urine (UA) Negative (Negative); Ketones,Urine 5 mg/dL (Negative); Nitrite,Urine Negative (Negative); Protein,Urine 30 MG/DL; RBC,Urine 23551 /HPF (0-4); Urine Color Red (Yellow); Urine Specific Gravity 1.019 (1.001-1.035); Urine Urobilinogen < 2.0 EU/DL (0.2-1.0); WBC,Urine 788 /HPF (0-6)
[2020-01-23 10:51] LABS: Albumin 2.8 G/DL (3.4-5.0); Bilirubin,Total 0.4 MG/DL (0.2-1.0); Osmolality,Calculated 251.8 MOS/KG (273-304); Total Protein 5.6 G/DL (6.4-8.3)
[2020-01-23 10:54] LABS: Barbiturates Screen,Urine Negative (Negative); Benzodiazepines Screen,Urine Negative (Negative); Cannabinoid Screen,Urine Negative (Negative); Opiate Screen,Urine Positive (Negative); Phencyclidine Screen,Urine Negative (Negative)
[2020-01-23] MEDS ORDERED: cefTRIAXone 1,000 MG in SODIUM CHLORIDE 0.9% 100 ML IV STA (11:08)
[2020-01-23] MEDS ORDERED: GLUCAGON 1 MG VIAL IM PRN (12:30)
[2020-01-23] MEDS ORDERED: DOCUSATE SODIUM 100 MG CAPSULE PO PRN (12:30)
[2020-01-23] MEDS ORDERED: ONDANSETRON 4 MG/2 ML VIAL IV PRN (12:30)
[2020-01-23] MEDS ORDERED: ACETAMINOPHEN 325 MG TABLET PO PRN (12:30)
[2020-01-23] MEDS ORDERED: SODIUM CHLORIDE 0.9% 1,000 ML IV PRN (12:34)
[2020-01-23 13:02] LABS: Risk Ratio 4.6; Thyroid Stimulating Hormone 6.86 uIU/ml (0.358-3.74)
[2020-01-23] MEDS ORDERED: POLYETHYLENE GLYCOL POWDER 17 GM PACK PO PRN (13:20)
[2020-01-23] MEDS ORDERED: HYDROCORTISONE 10 MG TABLET PO SCH (14:00)
[2020-01-23] MEDS: MEROPENEM 500 MG in SODIUM CHLORIDE 0.9% 100 ML IV SCH (15:28)
[2020-01-23] MEDS: SODIUM CHLORIDE 0.9% 1,000 ML IV SCH (16:10)
[2020-01-23] MEDS: GABAPENTIN 300 MG CAPSULE PO SCH ×2 (16:10→21:04)
[2020-01-23] MEDS: NYSTATIN 500,000 UNIT/5 ML UDCUP SWISH/SWAL SCH ×2 (18:09→21:14)
[2020-01-23] MEDS: POLYETHYLENE GLYCOL POWDER 17 GM PACK PO SCH (21:00)
[2020-01-23] MEDS: ACYCLOVIR 800 MG TABLET PO SCH (21:08)
[2020-01-23] MEDS: SENNA 8.6 MG TABLET PO SCH (21:10)
[2020-01-23] MEDS: DOCUSATE/SENNA 50-8.6 MG TABLET PO SCH (21:10)
[2020-01-23] MEDS ORDERED: OXYCODONE 60 MG PO PRN (22:49)
[2020-01-24 00:17] LABS: Hematocrit 22.3 VOL% (35.7-47.0); Hemoglobin 7.1 GM/DL (12.0-16.0)
[2020-01-24] MEDS: SODIUM CHLORIDE 0.9% 1,000 ML IV SCH (00:30)
[2020-01-24] MEDS: DEXTROSE 50% 25 GM/50 ML VIAL IV PRN ×3 (00:36→11:25)
[2020-01-24] MEDS: GABAPENTIN 300 MG CAPSULE PO SCH (06:41)
[2020-01-24] MEDS: LEVOTHYROXINE 175 MCG TABLET PO SCH (06:42)
[2020-01-24 07:22] LABS: Basophils % 0.4 % (0.0-0.8); Eosinophils # 0.2 10*3/uL (0.0-0.87); Eosinophils % 2.9 % (0.00-10.9); Hematocrit 20.3 VOL% (35.7-47.0); Hemoglobin 6.6 GM/DL (12.0-16.0); Immature Granulocytes % 0.4 %; Immature Granulocytes Absolute 0.03 #; Mean Corpuscular HGB Conc 32.5 GM/DL (32-36); Mean Corpuscular Volume 96.7 FL (87-102); Mean Platelet Volume 8.9 FL (9.6-12.0); Monocytes % 12.2 % (1.7-12.7); Neutrophils % 71.1 % (38.7-73.9); Platelet Count 204 T/CUMM (130-400); Red Cell Distribution Width 23.9 % (9.3-17.3); White Blood Count 7.6 T/CUMM (4-12)
[2020-01-24 07:39] LABS: Hypochromasia 1+; Microcytosis 1+; Platelet Estimate Adequate
[2020-01-24 07:40] LABS: Albumin 2.4 G/DL (3.4-5.0); Bilirubin,Total 0.4 MG/DL (0.2-1.0); Calcium 7.6 MG/DL (8.5-10.1); Osmolality,Calculated 260.1 MOS/KG (273-304); Total Protein 4.9 G/DL (6.4-8.3)
[2020-01-24] MEDS ORDERED: HYDROCORTISONE 10 MG TABLET PO SCH (09:00)
[2020-01-24] MEDS ORDERED: CHOLECALCIFEROL 1,000 UNIT TABLET PO SCH (09:00)
[2020-01-24] MEDS: PANTOPRAZOLE 40 MG TABLET PO SCH (09:15)
[2020-01-24] MEDS: ACYCLOVIR 800 MG TABLET PO SCH (09:15)
[2020-01-24] MEDS: SENNA 8.6 MG TABLET PO SCH (09:15)
[2020-01-24] MEDS: POLYETHYLENE GLYCOL POWDER 17 GM PACK PO SCH (09:15)
[2020-01-24] MEDS: NYSTATIN 500,000 UNIT/5 ML UDCUP SWISH/SWAL SCH ×4 (09:17→21:03)
[2020-01-24] MEDS: DOCUSATE/SENNA 50-8.6 MG TABLET PO SCH ×2 (11:20→21:03)
[2020-01-24] MEDS: DEXTROSE 5% NACL 0.9% 1,000 ML IV SCH ×2 (11:30→21:03)
[2020-01-24] MEDS: predniSONE 20 MG TABLET PO SCH ×2 (11:33→13:17)
[2020-01-24] MEDS: MEROPENEM 500 MG in SODIUM CHLORIDE 0.9% 100 ML IV SCH (12:55)
[2020-01-24] MEDS ORDERED: SODIUM CHLORIDE 0.9% 500 ML IV ONE ×3 (13:18→14:00)
[2020-01-24] MEDS ORDERED: METHYLNALTREXONE 12 MG/0.6 ML VIAL SUBCUT ONE (13:23)
[2020-01-24] MEDS ORDERED: OXYCODONE 20 MG PO PRN (13:25)
[2020-01-25] MEDS: DEXTROSE 5% NACL 0.9% 1,000 ML IV SCH ×3 (03:01→20:58)
[2020-01-25 05:39] LABS: Basophils % 0.1 % (0.0-0.8); Hematocrit 20.1 VOL% (35.7-47.0); Immature Granulocytes % 0.3 %; Immature Granulocytes Absolute 0.02 #; Lymphocytes # 0.6 10*3/uL (1.4-4.0); Lymphocytes % 8.5 % (21.3-54.2); Mean Corpuscular HGB Conc 31.3 GM/DL (32-36); Mean Platelet Volume 9.3 FL (9.6-12.0); Monocytes % 4.1 % (1.7-12.7); Platelet Count 206 T/CUMM (130-400); Red Blood Count 2.03 MC/CUMM (3.8-5.5); Red Cell Distribution Width 23.2 % (9.3-17.3); White Blood Count 7.5 T/CUMM (4-12)
[2020-01-25 05:40] LABS: Hemoglobin 6.3 GM/DL (12.0-16.0)
[2020-01-25 06:03] LABS: Hypochromasia 2+; Microcytosis 1+; Platelet Estimate Adequate
[2020-01-25 06:04] LABS: Ovalocytes Slight
[2020-01-25 06:10] LABS: Albumin 2.1 G/DL (3.4-5.0); Bilirubin,Total 0.8 MG/DL (0.2-1.0); Calcium 7.3 MG/DL (8.5-10.1); Osmolality,Calculated 268.8 MOS/KG (273-304); Total Protein 4.6 G/DL (6.4-8.3)
[2020-01-25] MEDS: LEVOTHYROXINE 175 MCG TABLET PO SCH (06:17)
[2020-01-25] MEDS: NYSTATIN 500,000 UNIT/5 ML UDCUP SWISH/SWAL SCH ×4 (08:51→20:58)
[2020-01-25] MEDS: DOCUSATE/SENNA 50-8.6 MG TABLET PO SCH ×2 (08:53→20:57)
[2020-01-25] MEDS: PANTOPRAZOLE 40 MG TABLET PO SCH (08:53)
[2020-01-25] MEDS: predniSONE 20 MG TABLET PO SCH (08:53)
[2020-01-25] MEDS ORDERED: SODIUM CHLORIDE 0.9% 1,000 ML IV PRN (08:58)
[2020-01-25] MEDS: SODIUM CHLORIDE 0.9% 1,000 ML IV SCH (09:18)
[2020-01-25] MEDS: MEROPENEM 500 MG in SODIUM CHLORIDE 0.9% 100 ML IV SCH (13:01)
[2020-01-26 05:21] LABS: Basophils % 0.2 % (0.0-0.8); Eosinophils % 0.2 % (0.00-10.9); Hematocrit 23.4 VOL% (35.7-47.0); Hemoglobin 7.6 GM/DL (12.0-16.0); Immature Granulocytes % 0.5 %; Immature Granulocytes Absolute 0.03 #; Lymphocytes # 0.9 10*3/uL (1.4-4.0); Mean Corpuscular HGB Conc 32.5 GM/DL (32-36); Mean Corpuscular Volume 94.7 FL (87-102); Mean Platelet Volume 9.8 FL (9.6-12.0); Monocytes % 6.5 % (1.7-12.7); Neutrophils % 79.6 % (38.7-73.9); Platelet Count 152 T/CUMM (130-400); Red Blood Count 2.47 MC/CUMM (3.8-5.5); Red Cell Distribution Width 21.2 % (9.3-17.3); White Blood Count 6.6 T/CUMM (4-12)
[2020-01-26 05:39] LABS: Bilirubin,Total 0.5 MG/DL (0.2-1.0); Calcium 7.1 MG/DL (8.5-10.1); Osmolality,Calculated 277.2 MOS/KG (273-304); Total Protein 4.5 G/DL (6.4-8.3)
[2020-01-26] MEDS: LEVOTHYROXINE 175 MCG TABLET PO SCH (05:45)
[2020-01-26] MEDS: DEXTROSE 5% NACL 0.9% 1,000 ML IV SCH ×4 (05:45→20:02)
[2020-01-26] MEDS: DOCUSATE/SENNA 50-8.6 MG TABLET PO SCH ×2 (09:58→21:16)
[2020-01-26] MEDS: predniSONE 20 MG TABLET PO SCH (09:59)
[2020-01-26] MEDS: PANTOPRAZOLE 40 MG TABLET PO SCH (09:59)
[2020-01-26] MEDS: NYSTATIN 500,000 UNIT/5 ML UDCUP SWISH/SWAL SCH ×4 (09:59→21:16)
[2020-01-26] MEDS: MEROPENEM 500 MG in SODIUM CHLORIDE 0.9% 100 ML IV SCH (12:37)
[2020-01-26] MEDS: LIDOCAINE 5% PATCH TRANSDERM SCH (14:20)
[2020-01-26] MEDS: oxyCODONE IR 5 MG TABLET PO PRN ×3 (14:21→21:54)
[2020-01-27] MEDS: oxyCODONE IR 5 MG TABLET PO PRN ×4 (02:28→13:50)
[2020-01-27] MEDS: DEXTROSE 5% NACL 0.9% 1,000 ML IV SCH ×2 (02:29→09:46)
[2020-01-27 05:49] LABS: Calcium 7.7 MG/DL (8.5-10.1); Osmolality,Calculated 280.8 MOS/KG (273-304)
[2020-01-27] MEDS: LEVOTHYROXINE 175 MCG TABLET PO SCH (06:32)
[2020-01-27] MEDS: LIDOCAINE 5% PATCH TRANSDERM SCH (09:30)
[2020-01-27] MEDS: PANTOPRAZOLE 40 MG TABLET PO SCH (09:30)
[2020-01-27] MEDS: NYSTATIN 500,000 UNIT/5 ML UDCUP SWISH/SWAL SCH ×2 (09:30→12:52)
[2020-01-27] MEDS: predniSONE 20 MG TABLET PO SCH (09:30)
[2020-01-27] MEDS: DOCUSATE/SENNA 50-8.6 MG TABLET PO SCH (09:30)
[2020-01-27 11:04] VITALS: BP 105/75
[2020-01-27] MEDS ORDERED: MORPHINE 4 MG/1 ML VIAL IV ONE ×2 (11:09→12:38)
[2020-01-27] MEDS ORDERED: MORPHINE 4 MG/1 ML VIAL IV PRN (12:35)
[2020-01-27] MEDS: MEROPENEM 500 MG in SODIUM CHLORIDE 0.9% 100 ML IV SCH (12:52)
== END 2020-01-27 15:03 | disposition hospice, home (50) | DRG 596 ==
LOC: N.ED 09:25 → N.EDINP 12:30 → SUATTDRO 12:30 → N.4E 13:51
PROVIDERS: ADMIT Internal Medicine; ATTEND Internal Medicine Nephrology